=== PATIENT | male | born 1985 | race Caucasian/White ===

== ENCOUNTER 2017-06-14 00:18 | Emergency (ER) | payer SELFPAY ==
[2017-06-14] MEDS ORDERED: NS 2,200 ML IV ONE (00:57)
[2017-06-14] MEDS ORDERED: IPRATROPIUM/ALBUTEROL 3 ML DEYVIAL IH ONE (00:58)
[2017-06-14 01:03] LABS: % IMMATURE GRANULYOCYTES 0.5 % (0.0-1.1); ABSOLUTE IMMATURE GRANULOCYTES 0.08 10^3/uL (0.00-0.10); ADD DIFF? NO; ADD MORPH? NO; ADD SCAN? NO; ATYPICAL LYMPHOCYTE FLAG 80 (0-99); FRAGMENT RBC FLAG 0 (0-99); HEMATOCRIT 38.9 % (40.0-51.0); HEMOGLOBIN 13.7 g/dL (13.7-17.5); LEFT SHIFT FLG 10 (0-99); LIPEMIA HEMOLYSIS FLAG 90 (0-99); MEAN CELL HEMOGLOBIN 33.3 pg (27.9-34.1); MEAN CELL HEMOGLOBIN CONCENTR. 35.2 g/dL (32.4-36.7); MEAN CELL VOLUME 94.6 fL (81.5-99.8); MEAN PLATELET VOLUME 10.4 fL (8.7-11.7); PLATELET CLUMPS FLAG 0 (0-99); PLATELET COUNT 297 10^3/uL (150-400); RED BLOOD CELL COUNT 4.11 10^6/uL (4.40-6.38); RED CELL DISTRIBUTION WIDTH 12.5 % (11.5-15.2)
[2017-06-14 01:08] LABS: ANION GAP 9 mEq/L (8-16); CALCIUM 8.8 mg/dL (8.5-10.4); CARBON DIOXIDE 25 mEq/l (22-31); CHLORIDE 103 mEq/L (97-110); CREATININE 0.7 mg/dL (0.7-1.3); GLOMERULAR FILTRATION RATE > 60; GLUCOSE 104 mg/dL (70-100); POTASSIUM 4.3 mEq/L (3.5-5.2); SODIUM 137 mEq/L (134-144)
[2017-06-14] MEDS ORDERED: ACETAMINOPHEN 500 MG TAB PO ONE (01:49)
[2017-06-14] MEDS ORDERED: AZITHROMYCIN 250 MG TAB PO ONE (03:26)
--- NOTE | 2017-06-14 03:27 | EDPHY ---
H & P Stated Complaint: Chest cold Source: Patient, EMS - Personal History Current Tetanus/Diphtheria Vaccine: Unsure Current Tetanus Diphtheria and Acellular Pertussis (TDAP): Unsure - Medical/Surgical History Hx Asthma: No Hx Chronic Respiratory Disease: No Hx Diabetes: No Hx Cardiac Disease: No Hx Renal Disease: No Hx Cirrhosis: No Hx Alcoholism: No Hx HIV/AIDS: No Hx Splenectomy or Spleen Trauma: No Other PMH: None stated - Social History Smoking Status: Former smoker Time Seen by Provider: 06/14/17 00:49 HPI/ROS: HPI The patient presents brought in by ambulance for cough and fever for the last several days. Apparently he was seen at [facility] emergency department earlier today and treated. He says he had a chest x-ray. He was not prescribed any medications. He is homeless and did not have a place to go so was found on a [address] corner. He said he did not want to go to a senior living because he did not want to get other senior living residence sick. He says his cough has been present for the last several weeks, is nonproductive, is associated with rhinorrhea and sore throat. He does smoke cigarettes. He is not sure about contacts. REVIEW OF SYSTEMS Constitutional: No fever, no chills. Eyes: No discharge. ENT: Positive for sore throat. Cardiovascular: No chest pain, no palpitations. Respiratory: Positive for cough, no shortness of breath. Gastrointestinal: No abdominal pain, no vomiting. Genitourinary: No hematuria. Musculoskeletal: No back pain. Skin: No rashes. Neurological: No headache. PMHx: Healthy Soc Hx: Homeless, reports tobacco use PHYSICAL General Appearance: Alert, occasionally coughing Eyes: Pupils equal and round no pallor or injection ENT, Mouth: Mucous membranes moist Respiratory: There are no retractions, lungs are clear to auscultation Cardiovascular: Tachycardic rate with regular rhythm Gastrointestinal: Abdomen is soft and non-tender, no masses, bowel sounds normal Neurological: A&O, moves all extremities Skin: Warm and dry, no rashes Musculoskeletal: Neck is supple non tender Extremities: symmetrical, full range of motion Psychiatric: Patient is oriented X 3, there is no agitation (Riguzzi,Marion) Constitutional: Initial Vital Signs Temperature (C) 38.1 C 06/14/17 00:35 Heart Rate 108 H 06/14/17 00:35 Respiratory Rate 18 06/14/17 00:35 Blood Pressure 126/77 H 06/14/17 00:35 O2 Sat (%) 97 06/14/17 00:35 O2 Delivery Mode Room Air Allergies/Adverse Reactions: No Known Allergies Allergy (Unverified 06/14/17 00:35) Home Medications: Medication Instructions Recorded Azithromycin 250 mg PO DAILY #4 tablet 06/14/17 Medical Decision Making ED Course/Re-evaluation: 820 I received a call from the radiologist, Dr. Lonnie Rivera. He has over read the chest x-ray obtained last night. He is identifying a pneumonia on the chest x-ray. I have reviewed the patient's record. He has been treated appropriately with azithromycin. He has been referred to [facility] for outpatient follow-up. Unfortunately there is no contact information in the system for this gentleman as he is homeless, so I have been unable to update the patient on this finding. (Beka Garcia) Differential Diagnosis: This is a 31-year-old homeless male who presents with a cough, rhinorrhea, sore throat for the last several days. He is brought in by ambulance. Here he has a fever and is tachycardic with active coughing. Differential diagnosis includes sepsis, pneumonia, bronchitis, influenza, viral URI. In the emergency department, the patient was given 2 L of IV fluid and Tylenol with improvement in his fever and normalization of his heart rate. Lactate was normal. Labs were checked and did reveal leukocytosis. Chest x-ray was unremarkable for any infiltrate. Rapid flu was also negative. I feel he likely has a viral URI as the cause of his symptoms. Given the normalization of his vital signs, I feel sepsis is unlikely and I believe his tachycardia was due to his fever. There is a chance that he could have bronchitis and because of this I am going to treat him with azithromycin. He is to return to the emergency department if he is worse in any way. (Marion Gan) - Data Points Laboratory Results: Laboratory Results 06/14/17 00:29 06/14/17 00:29 Medications Given: Discontinued Medications Acetaminophen (Tylenol) 1,000 mg PO EDNOW ONE Stop: 06/14/17 01:50 Last Admin: 06/14/17 01:51 Dose: 1,000 mg Albuterol/Ipratropium (Duoneb) 3 ml IH EDNOW ONE Stop: 06/14/17 00:59 Last Admin: 06/14/17 01:15 Dose: 3 ml Azithromycin (Zithromax) 500 mg PO EDNOW ONE PRN Reason: Protocol Stop: 06/14/17 03:27 Last Admin: 06/14/17 03:51 Dose: Not Given Sodium Chloride (Ns) 2,200 mls @ 4,400 mls/hr 30 ml/kg infuse over 30 min ( 2200 ml) IV EDNOW ONE PRN Reason: Protocol Stop: 06/14/17 01:26 Last Admin: 06/14/17 01:14 Dose: 2,200 mls Departure - Departure Disposition: Home, Routine, Self-Care Clinical Impression: Bronchitis Fever Qualifiers: Fever type: unspecified Qualified Code(s): R50.9 - Fever, unspecified Condition: Good Instructions: Acute Bronchitis (ED) Additional Instructions: Please return to the emergency room if your worse in any way. Otherwise please follow-up with [facility] for recheck. Referrals: [facility],. [Clinic] - As per Instructions Prescriptions: Azithromycin 250 mg PO DAILY #4 tablet
[2017-06-14 03:50] VITALS: BP 96/59; PULSE 91; RESP 16; TEMP 99.3; O2SAT 98
== END 2017-06-14 03:47 | disposition home or self-care (01) ==
DX: J20.9 Acute bronchitis, unspecified (principal); E86.9 Volume depletion, unspecified; F17.210 Nicotine dependence, cigarettes, uncomplicated